=== PATIENT | female | born 1945 | race Caucasian/White ===

== ENCOUNTER 2018-05-02 18:40 | Emergency (ER) | payer MEDICARE ==
[~2018-05-02] VITALS: Ht 162.6 cm; Wt 68.0 kg
[2018-05-02] MEDS ORDERED: HYDRALAZINE 20MG/ML VIAL IV ONE (19:00)
[2018-05-02 19:32] LABS: BASOPHILS % 1.1 % (0.0-2.0); EOSINOPHILS % 2.4 % (0.0-5.0); HEMATOCRIT. 32.4 % (36.0-48.0); LYMPHOCYTES % 43.5 % (20.0-50.0); MEAN CORPUSCULAR HEMOGLOBIN 31.3 pg (28.0-32.0); MEAN CORPUSCULAR VOLUME 91.9 fL (81.0-99.0); MEAN PLATELET VOLUME 7.9 fl (7.4-10.4); MONOCYTES % 12.7 % (2.0-8.0); NEUTROPHILS % 40.3 % (40.0-76.0); PLATELET 270 x1000/uL (130-400); RED BLOOD CELL COUNT 3.52 mill/uL (4.2-5.4); RED CELL DISTRIBUTION WIDTH 13.4 % (11.6-14.6)
[2018-05-02 19:34] LABS: CHLORIDE 95 mEq/L (98-107)
[2018-05-02 19:38] LABS: PARTIAL THROMBOPLASTIN TIME 27.5 sec (23.4-31.0); PROTHROMBIN TIME 10.6 sec (9.4-11.6)
[2018-05-02 19:40] LABS: PHOSPHORUS 2.7 mg/dL (2.5-4.9)
[2018-05-02] MEDS ORDERED: FUROSEMIDE 20MG/2ML VIAL IVP ONE (20:30)
[2018-05-02] MEDS ORDERED: MAGNESIUM 1 G PREMIX 100 ML IV ONE (20:30)
[2018-05-02] MEDS ORDERED: NITROGLYCERIN 0.4MG TABLET SL SL PRN (20:45)
[2018-05-02] MEDS ORDERED: DEXTROSE 50% WATER 50ML SYRINGE IV PRN (20:45)
[2018-05-02] MEDS ORDERED: LORAZEPAM 0.5MG TABLET PO PRN (20:45)
[2018-05-02] MEDS ORDERED: DIPHENHYDRAMINE 50MG/ML VIAL IV PRN (20:45)
[2018-05-02] MEDS ORDERED: CLONIDINE 0.1MG TABLET PO PRN (20:45)
[2018-05-02] MEDS ORDERED: IPRATROPIUM/ALBUTEROL 0.5-3(2.5)MG/3ML NEB INH PRN (20:45)
[2018-05-02] MEDS ORDERED: ENOXAPARIN 40MG/0.4ML SYR SUBCUT SCH (20:45)
[2018-05-02] MEDS ORDERED: GUAIFENESIN 200MG/10ML SUGAR FREE UDC PO PRN (20:45)
[2018-05-02] MEDS ORDERED: ACETAMINOPHEN 325MG TABLET PO PRN (20:45)
[2018-05-02] MEDS ORDERED: ONDANSETRON HCL 4MG/2ML VIAL IV PRN (20:45)
[2018-05-02] MEDS ORDERED: MAGNESIUM/ALUMINUM HYDROXIDE/SIMETHICONE 30ML UDC PO PRN (20:45)
[2018-05-02] MEDS ORDERED: DOCUSATE SODIUM 100MG CAPSULE PO PRN (20:45)
[2018-05-02] MEDS ORDERED: TRAMADOL 50MG TABLET PO PRN (21:00)
[2018-05-02] MEDS ORDERED: METOPROLOL TARTRATE 25MG TABLET PO SCH (21:00)
[2018-05-02] MEDS ORDERED: BLOOD SUGAR DIAGNOSTIC STRIP TEST SCH (21:00)
[2018-05-02] MEDS ORDERED: MINOXIDIL 2.5MG TABLET PO SCH (21:00)
[2018-05-02] MEDS ORDERED: NA PHOS,M-B/NA PHOS,DI-BA ENEMA 118ML PR PRN (21:00)
[2018-05-02] MEDS ORDERED: ZOLPIDEM TARTRATE 5MG TABLET PO PRN (21:00)
[2018-05-02] MEDS ORDERED: LISINOPRIL 20MG TABLET PO SCH (21:00)
[2018-05-02] MEDS ORDERED: INSULIN LISPRO 100 UNITS/ML SUBCUT SCH (21:00)
[2018-05-02 21:28] VITALS: BP 165/100
[2018-05-03] MEDS ORDERED: ASPIRIN 325MG EC TABLET PO SCH (09:00)
[2018-05-03] MEDS ORDERED: AMLODIPINE 10MG TABLET PO SCH (09:00)
== END 2018-05-02 21:00 | disposition left against medical advice (07) ==
LOC: ER 18:40 → EDBEDREQ 19:03 → EDBEDREQTM 20:01 → SUPCPDRO 20:07 → ENRESERV 20:55 → CANRESERV 20:55 → ER 21:00 → CANBEDREQ 05-03 16:42
DX: I16.0 Hypertensive urgency (principal); I11.0 Hypertensive heart disease with heart failure; I50.41 Acute combined systolic (congestive) and diastolic (congestive) heart failure; E11.9 Type 2 diabetes mellitus without complications; E87.8 Other disorders of electrolyte and fluid balance, not elsewhere classified; R42 Dizziness and giddiness
CPT/HCPCS: 36415; 71045; 80053; 80061; 83036; 83690; 83735; 83880; 84100; 84443; 84484; 85025; 85610; 85730; 93005; 96374; 99291; J0360; J1940; J3475